=== PATIENT | male | born 1990 | race Two or more races ===

== ENCOUNTER → 2024-05-31 | Outpatient (CLI) | payer MEDICAID, SELFPAY ==
--- NOTE | 2024-05-31 12:55 | XR_ITS ---
EXAMINATION: Cervical spine, 5 views Technique: Cervical spine AP, AP odontoid, lateral, bilateral obliques, 5 views Exam date and time: May 31, 2024 1316 hours INDICATIONS: Injury to the neck 3 months ago with neck pain radiating to the shoulders FINDINGS: Satisfactory alignment cervical vertebral bodies No cervical fracture Intact odontoid No significant neural foraminal stenosis IMPRESSION: No cervical fracture or significant arthritic change
--- NOTE | 2024-05-31 12:56 | XR_ITS ---
Examination: Thoracic spine 3 views Technique one AP lateral coned lateral upper dorsal spine 3 views Exam date and time: May 31, 2024 1324 hours INDICATIONS: Mid back pain after injury 3 months ago FINDINGS: Adequate bone density. No thoracic fracture Mild diffuse thoracic disc narrowing Mild to moderate thoracic spondylosis IMPRESSION: No acute thoracic fracture Mild diffuse thoracic degenerative disc disease
== END | disposition home or self-care (01) ==
PROVIDERS: PCP Nurse Practitioner Family; Referring Provider Nurse Practitioner Family; Visit Provider Nurse Practitioner Family
DX: S19.9XXA Unspecified injury of neck, initial encounter (principal); S29.9XXA Unspecified injury of thorax, initial encounter; X58.XXXA Exposure to other specified factors, initial encounter; M51.34 Other intervertebral disc degeneration, thoracic region
CPT/HCPCS: 72050; 72072

== ENCOUNTER 2024-10-25 13:39 | Outpatient (RCR) | payer MEDICAID, SELFPAY ==
--- NOTE | 2024-10-25 14:13 | PTNOTE_ITS ---
PT OP Initial Eval Patient Information Outpatient Physical Therapy Treatment Date: 10/25/24 Visit Reasons: Low back pain Medical Diagnosis: Low Back Pain Treatment Dx #1: Back Pain Start of Care: 10/25/24 Date of Onset: 3 years ago Smoking Status Smoking Status: Never smoker Initial Assessment Subjective: Pt is a 34 y/o male reports of chronic back pain (01/13) with BLE weakness and numbness R>L. No imaging has been done thus far. Pt is pending MRI on Tuesday. Pt has limitation with sitting, standing, lifting, chores, self care activities, work duties, and recreational activities. Objective: L/S AROM: all motions are WFL with end range pain in all plane Hip PROM: all motions are WFL except IR Hip MMTs: grossly 3/5 Special Test (+) SLR (+) slump Assessment: Pt demonstrate back pain with mobility deficits leading to difficulty with ADLs. Pt will attempt physical therapy if pain persist Pt will be refer back to provider for further consultation. Short Term and Form Setter/Driver Goals 1) Increase L/S AROM WNL in 6 wks to be able to perform chores 2) Decrease back pain to 2/10 in 6 wks to be able to sit and stand more than 30 mins 3) Increase core strength WFL in 6 wks to be able to perform recreational activities 4) Increase hip MMTs grossly to 4-/5 in 6 wks to be able to walk more than 30 mins 5) Indep with HEP Treatment Plan 1) Manual Therapy 2) Therapeutic Activities 3) Therapeutic Exercises 4) Modalities (ice, heat, traction) Frequency and Duration: 2 x wk for 6 wks Certification Dates: 10/25/24 to 01/25/25 Procedure Charges OP PT Eval Mod Complex 30 minutes: Yes
== END 2024-11-03 23:59 | disposition home or self-care (01) ==
LOC: CPTX 13:39
PROVIDERS: PCP Nurse Practitioner Family; Referring Provider Nurse Practitioner Family; Visit Provider Nurse Practitioner Family
DX: M54.50 Low back pain, unspecified (principal); R53.1 Weakness; R20.0 Anesthesia of skin; G89.29 Other chronic pain
CPT/HCPCS: 97162

== ENCOUNTER → 2024-10-27 | Outpatient (CLI) | payer MEDICAID, SELFPAY ==
--- NOTE | 2024-10-27 13:00 | XR_ITS ---
Examination: MRI lumbar spine without contrast Date and time of exam: October 27, 2024 1316 hours INDICATIONS: Low back pain beginning 6 months ago radiating down the legs Technique: Multiple MRI axial and sagittal sections lumbar spine. Sagittal T2-weighted images, TR 3500, TE 118 T1 weighted transverse sections, TR 688 T8.5, T2-weighted sagittal sections T1 weighted sagittal sections TR 621, TE 30 T2 axial sections, TR 4, 190, TE 84. Findings: Adequate alignment lumbar vertebral bodies No lumbar fracture No lumbar disc narrowing or disc desiccation Negative for lumbar disc desiccation No spondylolisthesis Axial images demonstrate no focal lumbar disc protrusion IMPRESSION: No lumbar fracture No focal lumbar disc protrusion
== END | disposition home or self-care (01) ==
LOC: SMRI 12:26
PROVIDERS: PCP Nurse Practitioner Family; Referring Provider Nurse Practitioner Family; Visit Provider Nurse Practitioner Family
DX: M54.50 Low back pain, unspecified (principal)
CPT/HCPCS: 72148

== ENCOUNTER 2024-11-28 15:30 | Outpatient (RCR) | payer MEDICAID, SELFPAY ==
--- NOTE | 2024-11-05 16:00 | PT.ODAYNRPT ---
PT Outpatient Daily Note OP Daily Note Outpatient Physical Therapy Treatment Date: 11/05/24 Visit Reasons: Low back pain Subjective: Pt mentioned he has numbness from his back to the front of the stomach. Minimal changes in his LEs lately. Objective: Please see flow chart for list of ther ex Assessment: review lumbar MRI with patient. Pt gave verbal understanding of the MRI results. Pt tolerate all exercises and reports of decrease back pain post PT session Plan: Continue with PT Length of Time (minutes) of Treatment: 30 Minutes Procedure Charges Therapeutic Exercise 30 minutes: Yes
--- NOTE | 2024-11-07 16:08 | PT.ODAYNRPT ---
PT Outpatient Daily Note OP Daily Note Outpatient Physical Therapy Treatment Date: 11/07/24 Visit Reasons: Low back pain Subjective: Pt report pain has slightly reduced since starting PT. Objective: Please see flow sheet for ther ex list. Assessment: Pt instructed on prone on elbows exercise, pt reported some decrease in LE symptom. Pt encouraged to perform for HEP, pt agreed. Plan: Continue with POC. Length of Time (minutes) of Treatment: 30 Minutes Procedure Charges Therapeutic Exercise 30 minutes: Yes
--- NOTE | 2024-11-12 16:33 | PT.ODAYNRPT ---
PT Outpatient Daily Note OP Daily Note Outpatient Physical Therapy Treatment Date: 11/12/24 Visit Reasons: Low back pain Subjective: Pt reports back has been feeling better, no LE symptoms. Objective: Please see flow sheet for ther ex list. Assessment: Pt presents in clinic with improved lumbar symptoms allowing for intervention progression. Plan: Continue with pOC. Length of Time (minutes) of Treatment: 30 Minutes Procedure Charges Therapeutic Exercise 30 minutes: Yes
--- NOTE | 2024-11-19 16:06 | PT.ODAYNRPT ---
PT Outpatient Daily Note OP Daily Note Outpatient Physical Therapy Treatment Date: 11/19/24 Visit Reasons: Low back pain Subjective: Pt content to share that back pain in less intense and can get up out of the bed in the morning with more ease. Objective: Please see flow sheet for ther ex list. Assessment: Pt present in clinic with decrease pain allowing for progression of interventions. Plan: Continue with pOC. Progress core strangthening. Length of Time (minutes) of Treatment: 30 Minutes Procedure Charges Therapeutic Exercise 30 minutes: Yes
--- NOTE | 2024-11-28 16:25 | PT.ODAYNRPT ---
PT Outpatient Daily Note OP Daily Note Outpatient Physical Therapy Treatment Date: 11/28/24 Visit Reasons: Low back pain Subjective: Pt reports progress with symptoms, no LE symptoms to report. Objective: Please see flow sheet for ther ex list. Assessment: Progressing interventions per pt tolerance. Plan: Continue with poc. Length of Time (minutes) of Treatment: 30 Minutes Procedure Charges Therapeutic Exercise 30 minutes: Yes
--- NOTE | 2024-12-21 11:10 | PT.ODS1RPT ---
PT OP Progress/Discharge Note Date of Service: 12/21/24 Progress Note/DC Note Progress Note/Discharge Note: DC Note Patient Information Visit Reasons: Low back pain Service Discharge Date: 12/21/24 Status Assessment: Pt has been seen for 6 visits (eval + 5 visits). Pt last treated on 11/28/24. Pt no showed 12/10, 12/12, and 12/18 appt. At this time Pt will be d/c from care due to non-compliance per attendance policy. Pt did not meet set goals in therapy; thank you for your referrals
== END 2024-12-03 23:59 | disposition home or self-care (01) ==
LOC: CPTX 15:30
PROVIDERS: PCP Nurse Practitioner Family; Referring Provider Nurse Practitioner Family; Visit Provider Nurse Practitioner Family
DX: M54.50 Low back pain, unspecified (principal); R53.1 Weakness; R20.0 Anesthesia of skin; G89.29 Other chronic pain
CPT/HCPCS: 97110

== ENCOUNTER → 2024-12-24 | Outpatient (CLI) | payer OTHER, SELFPAY ==
--- NOTE | 2024-12-24 10:21 | XR_ITS ---
Examination: Tibia-Fibula, left , 2 views Technique: Tibia-fibula AP lateral 2 views Date and time of exam: December 24, 2024 1025 hours INDICATIONS: Injury to the lower leg 3 days ago lower leg pain. FINDINGS: No fracture or dislocation. No foreign body IMPRESSION: No fracture or dislocation
--- NOTE | 2024-12-24 10:21 | XR_ITS ---
Examination: Knee, right , 3 views Technique: Knee AP, lateral, oblique 3 views Date and time of exam: December 24, 2024 1025 hours INDICATIONS: Injury to the knee 3 days ago with knee pain. FINDINGS: No fracture or dislocation. No foreign body. IMPRESSION: No fracture or dislocation.
== END | disposition home or self-care (01) ==
LOC: CDIM 10:15
PROVIDERS: PCP Nurse Practitioner Family; Referring Provider Family Medicine; Visit Provider Family Medicine
DX: M23.91 Unspecified internal derangement of right knee (principal); S80.12XA Contusion of left lower leg, initial encounter; X58.XXXA Exposure to other specified factors, initial encounter
CPT/HCPCS: 73562; 73590